=== PATIENT | female | born 2000 | race Two or more races ===

== ENCOUNTER 2022-10-04 18:56 | Emergency (ER) | payer OTHER ==
[~2022-10-04] VITALS: Ht 157.5 cm; Wt 80.7 kg
[2022-10-04 19:19] VITALS: BP 145/76
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
[2022-10-04] MEDS ORDERED: IBUPROFEN 600 MG TABLET PO ONE (19:30)
--- NOTE | 2022-10-04 19:33 | NUR ---
[employer] FORMER MACHINE OPERATOR AT PT'S BEDSIDE
[2022-10-04] MEDS ORDERED: IBUPROFEN 600 MG TABLET ONE (19:38)
[2022-10-04] MEDS ORDERED: IBUP-1955 PO (20:43)
[2022-10-04] MEDS ORDERED: CYCL10TA9 PO (20:43)
--- NOTE | 2022-10-04 22:25 | NUR ---
Patient discharged to home in stable condition. Written and verbal after care instructions given. Patient verbalizes understanding of instruction.
== END 2022-10-04 23:07 | disposition home or self-care (01) ==
LOC: ER 19:04
DX: S63.591A Other specified sprain of right wrist, initial encounter (principal); Z79.899 Other long term (current) drug therapy; V89.2XXA Person injured in unspecified motor-vehicle accident, traffic, initial encounter; Y93.89 Activity, other specified; Y92.89 Other specified places as the place of occurrence of the external cause; Y99.8 Other external cause status
CPT/HCPCS: 73090-TC; 73110